=== PATIENT | male | born 1960 | race Hispanic/Latino ===

== ENCOUNTER → 2018-07-20 10:12 | Outpatient (CLI) | payer OTHER, SELFPAY ==
--- NOTE | 2018-07-20 | DI.US.S_ITS ---
PROCEDURE: US RETRO PERITONEAL LIMITED INDICATIONS: Abdominal aortic aneurysm, without rupture TECHNIQUE: Real time scanning was performed of the aorta and iliac arteries, with image documentation. COMPARISON: None. FINDINGS: Aorta: Proximal aortic diameter measures 2.8 cm. Mid-aorta measures 1.7 cm. There is a distal abdominal aortic aneurysm seen, which is fusiform in shape and measures 2.8 cm AP by 3.5 cm wide, with a craniocaudal extent of 4.3 cm. Iliac arteries: Right common iliac artery measures 1 cm. Left common iliac artery measures 1.1 cm. IMPRESSION: Mild distal abdominal aortic aneurysm, measuring 2.8 cm AP and 3.5 cm transversely. Dictated by: Rosalino Duran M.D. on 07/20/2018 at 12:17 Approved by: Rosalino Duran M.D. on 07/20/2018 at 12:18
== END ==
PROVIDERS: Visit Provider Physician Assistant
DX: I71.4 Abdominal aortic aneurysm, without rupture (principal)
CPT/HCPCS: 76775